=== PATIENT | male | born 1950 | race Caucasian/White ===

== ENCOUNTER 2016-10-31 22:47 | Emergency (ER) | payer OTHER, MEDICAID ==
[2016-11-01] MEDS ORDERED: OXYMETAZOLINE NASAL SPRAY (AFRIN) As Ordered ONE (00:01)
--- NOTE | 2016-11-01 00:28 | EDDOCDS ---
Nurse's Notes [facility] Name: Melo Montana Age: 66 yrs Sex: Male : 1950 Arrival Date: 10/31/2016 Time: 22:47 Bed I8 / 16 Private MD: Unknown, Family Dr Diagnosis: Epistaxis-resolved;Essential (primary) hypertension Presentation: 10/31 22:50 Presenting complaint: Patient states: nose bleed this morning. stopped after 20 mts of rs3 pressure/rest. started back 2 hours ago. unable to control bleeding. Adult Sepsis Screening: The patient does not have new or worsening altered mentation. Patient's respiratory rate is less than 22. Systolic blood pressure is greater than 100. Patient has a qSOFA score of 0- Negative Sepsis Screen. Suicide/Homicide risk assessment- the patient denies having any suicidal and/or homicidal ideations and does not present with any other emotional, behavioral or mental health complaints. Status: Patient is not a cloud services architect or dependent. Transition of care: patient was not received from another setting of care. 22:50 Acuity: SHANNON Level 3 rs3 22:50 Method Of Arrival: Walkin/Carried/Asstd rs3 Triage Assessment: 22:57 General: Appears in no apparent distress. Pain: Denies pain. rs3 Historical: - Allergies: no known allergies; - Home Meds: 1. amlodipine 10 mg Oral tab once daily 2. metoprolol tartrate 100 mg Oral tab 2 times per day 3. hydrochlorothiazide 25 mg Oral tab 1 tab once daily 4. lisinopril 5 mg Oral tab once daily 5. aspirin 81 mg Oral cpDR 6. sildenafil 25 mg oral tab 1 tab as needed 7. metformin 500 mg Oral tab 1 tab 2 times per day - PMHx: Hypertension; Diabetes - NIDDM: controlled; - PSHx: Cholecystectomy; - Social history: Smoking status: Patient states was never smoker of tobacco. No barriers to communication noted, The patient speaks fluent Kinyarwanda. - Family history: Not pertinent. - : The pt / caregiver states he / she is not on anticoagulants. Home medication list is obtained from the patient. - Exposure Risk Screening:: None identified. Screenin/29 00:25 Screening information is obtained from the patient. Fall risk: No risks identified. slm Assistance ADL's: requires no assistance with activities of daily living. Abuse/DV Screen: The patient / caregiver reports he/she is: not in a situation that causes fear, pain or injury. Nutritional screening: No deficits noted. Advance Directives: Currently, there is no health care proxy. There is no active DNR order. There is no living will. There is no Power of Billing Adjudicator. Advance directive information has not previously been placed in an [facility] medical record. home support is adequate. Assessment: 00:25 Reassessment: Patient appears in no apparent distress at this time. no active bleeding slm from nares at this time . Vital Signs: 10/31 22:49 BP 174 / 104; Pulse 63; Resp 18 S; Temp 97.1(T); Pulse Ox 99% on R/A; Weight 63.05 kg dd6 (R); Height 5 ft. 6 in. (167.64 cm) (R); 23:55 BP 166 / 81; Pulse 89; Resp 18; Temp 97.3; Pulse Ox 97% ; ajs 22:49 Body Mass Index 22.43 (63.05 kg, 167.64 cm) dd6 Vitals: 22:49 Log In Time: October 31, 2016 at 22:47. dd6 ED Course: 22:48 Patient visited by Mina Almeida PCA. dd6 22:48 Unknown, Family Dr is Private Physician. dd6 22:48 Patient moved to Waiting dd6 22:50 Patient moved to Pre RCE dd6 22:53 Triage Initiated rs3 22:59 Patient moved to I8 / 16 kmg1 23:34 Silver Brown DO is Attending Physician. mm11 23:34 Patient visited by Silver Brown DO. mm11 23:45 Patient visited by Silver Brown DO. mm11 23:56 Patient visited by Joyce Farah. ajs 11/01 00:26 The patient / caregiver is instructed regarding the plan of care and ED course. Patient slm has correct armband on for positive identification. Bed in low position. Call light in reach. Side rails up X 1. 00:26 No IV's were initiated during this patient's visit. No procedures done that require slm assistance. Administered Medications: 00:07 Drug: Oxymetazoline 1 sprays [oxymetazoline 0.05 % nasal spray (1 sprays)] Route: anamaria Intranasal; Site: both nares; Order Results: There are currently no results for this order. Outcome: 00:21 Discharge ordered by Provider. mm11 00:26 Discharge Assessment: Patient awake, alert and oriented x 3. No cognitive and/or slm functional deficits noted. Patient verbalized understanding of disposition instructions. patient administered narcotics - no. The following High Risk Discharge criteria are identified: None. Discharged to home ambulatory. Condition: good. Discharge instructions given to patient, Instructed on discharge instructions, follow up and referral plans. Demonstrated understanding of instructions, Pt was receptive of discharge instructions/ teaching. No special radiology studies were completed. Property :Personal belongings accompany Pt. 00:27 Patient left the ED. slm Signatures: Kera Nguyen, RN RN kmg1 Silver Brown, DO DO mm11 Mina Almeida, STEEL DIE ENGRAVER STEEL DIE ENGRAVER dd6 Jacey Albright RN RN rs3 Joyce Farah Joshua, RN RN jmb McIntyre, Stephanie, LPN LPN slm DULCE MARIA
--- NOTE | 2016-11-01 00:28 | EDDOCDS ---
Physician Documentation [facility] Name: Melo Montana Age: 66 yrs Sex: Male : 1950 Arrival Date: 10/31/2016 Time: 22:47 Bed I8 Private MD: Unknown, Family Dr Disposition: 11/01/16 00:21 Discharged to Home/Self Care. Impression: Epistaxis - resolved, Essential (primary) hypertension. - Condition is Stable. - Discharge Instructions: Nosebleed, Hypertension, Hypertension, [id number], Nosebleed, Gvsf-aw-[id number]. - Medication Reconciliation, Local Pharmacy Hours form. - Follow up: Private Physician; When: Call to arrange an appointment; Reason: Continuance of care. - Problem is an acute exacerbation. - Symptoms have improved. Historical: - Allergies: no known allergies; - Home Meds: 1. amlodipine 10 mg Oral tab once daily 2. metoprolol tartrate 100 mg Oral tab 2 times per day 3. hydrochlorothiazide 25 mg Oral tab 1 tab once daily 4. lisinopril 5 mg Oral tab once daily 5. aspirin 81 mg Oral cpDR 6. sildenafil 25 mg oral tab 1 tab as needed 7. metformin 500 mg Oral tab 1 tab 2 times per day - PMHx: Hypertension; Diabetes - NIDDM: controlled; - PSHx: Cholecystectomy; - Social history: Smoking status: Patient states was never smoker of tobacco. No barriers to communication noted, The patient speaks fluent Northern Irish. - Family history: Not pertinent. - : The pt / caregiver states he / she is not on anticoagulants. Home medication list is obtained from the patient. - Exposure Risk Screening:: None identified. Vital Signs: 10/31 22:49 BP 174 / 104; Pulse 63; Resp 18 S; Temp 97.1(T); Pulse Ox 99% on R/A; Weight 63.05 kg / dd6 139 lbs (R); Height 5 ft. 6 in. (167.64 cm) (R); 23:55 BP 166 / 81; Pulse 89; Resp 18; Temp 97.3; Pulse Ox 97% ; ajs 22:49 Body Mass Index 22.43 (63.05 kg, 167.64 cm) dd6 MDM: 23:46 Oxymetazoline [place] 0.05 % 1 sprays Intranasal in both nares once ordered. mm11 23:46 Recheck B/P ordered. mm11 Administered Medications: 11/01 00:07 Drug: Oxymetazoline 1 sprays [oxymetazoline 0.05 % nasal spray (1 sprays)] Route: jmb Intranasal; Site: both nares; Signatures: Silver Brown DO DO mm11 Jacey Albright RN RN rs3 Maryam Sahu LPN LPN Kwabena Eduardo RN GLENNYD
--- NOTE | 2016-11-03 01:28 | EDDOCDS ---
Nurse's Notes [facility] Name: Melo Montana Age: 66 yrs Sex: Male : 1950 Arrival Date: 10/31/2016 Time: 22:47 Bed I8 / 16 Private MD: Unknown, Family Dr Diagnosis: Epistaxis-resolved;Essential (primary) hypertension Presentation: 10/31 22:50 Presenting complaint: Patient states: nose bleed this morning. stopped after 20 mts of rs3 pressure/rest. started back 2 hours ago. unable to control bleeding. Adult Sepsis Screening: The patient does not have new or worsening altered mentation. Patient's respiratory rate is less than 22. Systolic blood pressure is greater than 100. Patient has a qSOFA score of 0- Negative Sepsis Screen. Suicide/Homicide risk assessment- the patient denies having any suicidal and/or homicidal ideations and does not present with any other emotional, behavioral or mental health complaints. Status: Patient is not a hotel services sales representative or dependent. Transition of care: patient was not received from another setting of care. 22:50 Acuity: SHANNON Level 3 rs3 22:50 Method Of Arrival: Walkin/Carried/Asstd rs3 Triage Assessment: 22:57 General: Appears in no apparent distress. Pain: Denies pain. rs3 Historical: - Allergies: no known allergies; - Home Meds: 1. amlodipine 10 mg Oral tab once daily 2. metoprolol tartrate 100 mg Oral tab 2 times per day 3. hydrochlorothiazide 25 mg Oral tab 1 tab once daily 4. lisinopril 5 mg Oral tab once daily 5. aspirin 81 mg Oral cpDR 6. sildenafil 25 mg oral tab 1 tab as needed 7. metformin 500 mg Oral tab 1 tab 2 times per day - PMHx: Hypertension; Diabetes - NIDDM: controlled; - PSHx: Cholecystectomy; - Social history: Smoking status: Patient states was never smoker of tobacco. No barriers to communication noted, The patient speaks fluent Occitan. - Family history: Not pertinent. - : The pt / caregiver states he / she is not on anticoagulants. Home medication list is obtained from the patient. - Exposure Risk Screening:: None identified. Screenin/29 00:25 Screening information is obtained from the patient. Fall risk: No risks identified. slm Assistance ADL's: requires no assistance with activities of daily living. Abuse/DV Screen: The patient / caregiver reports he/she is: not in a situation that causes fear, pain or injury. Nutritional screening: No deficits noted. Advance Directives: Currently, there is no health care proxy. There is no active DNR order. There is no living will. There is no Power of Slag Mixer. Advance directive information has not previously been placed in an [facility] medical record. home support is adequate. Assessment: 00:25 Reassessment: Patient appears in no apparent distress at this time. no active bleeding slm from nares at this time . Vital Signs: 10/31 22:49 BP 174 / 104; Pulse 63; Resp 18 S; Temp 97.1(T); Pulse Ox 99% on R/A; Weight 63.05 kg dd6 (R); Height 5 ft. 6 in. (167.64 cm) (R); 23:55 BP 166 / 81; Pulse 89; Resp 18; Temp 97.3; Pulse Ox 97% ; ajs 22:49 Body Mass Index 22.43 (63.05 kg, 167.64 cm) dd6 Vitals: 22:49 Log In Time: October 31, 2016 at 22:47. dd6 ED Course: 22:48 Patient visited by Mina Almeida PCA. dd6 22:48 Unknown, Family Dr is Private Physician. dd6 22:48 Patient moved to Waiting dd6 22:50 Patient moved to Pre RCE dd6 22:53 Triage Initiated rs3 22:59 Patient moved to I8 / 16 km 23:34 Silver Brown DO is Attending Physician. mm11 23:34 Patient visited by Silver Brown DO. mm11 23:45 Patient visited by Silver Brown DO. mm11 23:56 Patient visited by Joyce Farah. ajs 11/01 00:26 The patient / caregiver is instructed regarding the plan of care and ED course. Patient slm has correct armband on for positive identification. Bed in low position. Call light in reach. Side rails up X 1. 00:26 No IV's were initiated during this patient's visit. No procedures done that require slm assistance. 00:33 Patient name changed from Melo\S\\S\Viobed\S\ to Melo\S\ \S\Vielhauer. EDMS 00:38 [facility] Payment Agreement was scanned into [employer] and attached to record. ks16 22:24 T-Sheet-- Draft Copy was scanned into [employer] and attached to record. klr Administered Medications: 00:07 Drug: Oxymetazoline 1 sprays [oxymetazoline 0.05 % nasal spray (1 sprays)] Route: jmb Intranasal; Site: both nares; Order Results: There are currently no results for this order. Outcome: 00:21 Discharge ordered by Provider. mm11 00:26 Discharge Assessment: Patient awake, alert and oriented x 3. No cognitive and/or slm functional deficits noted. Patient verbalized understanding of disposition instructions. patient administered narcotics - no. The following High Risk Discharge criteria are identified: None. Discharged to home ambulatory. Condition: good. Discharge instructions given to patient, Instructed on discharge instructions, follow up and referral plans. Demonstrated understanding of instructions, Pt was receptive of discharge instructions/ teaching. No special radiology studies were completed. Property :Personal belongings accompany Pt. 00:27 Patient left the ED. slm Signatures: Dispatcher [employer] EDMS Kera Nguyen, RN RN kmg1 Silver Brown, DO DO mm11 Mina Almeida, DIRECTOR SUPPLIER QUALITY DIRECTOR SUPPLIER QUALITY dd6 Jacey Albright,RN RN rs3 Joyce Farah JoshuaRN RN Maryam Hunt LPN LPN slm Daya Tao, Reg Reg ks16 Ana María Kauffman klr Chart Complete MTDD
--- NOTE | 2016-11-03 01:28 | EDDOCDS ---
Physician Documentation [facility] Name: Melo Montana Age: 66 yrs Sex: Male : 1950 Arrival Date: 10/31/2016 Time: 22:47 Bed I8 Private MD: Unknown, Family Dr Disposition: 11/01/16 00:21 Discharged to Home/Self Care. Impression: Epistaxis - resolved, Essential (primary) hypertension. - Condition is Stable. - Discharge Instructions: Nosebleed, Hypertension, Hypertension, Vvqt-[id number], Nosebleed, Gwth-cg-Yley. - Medication Reconciliation, Local Pharmacy Hours form. - Follow up: Private Physician; When: Call to arrange an appointment; Reason: Continuance of care. - Problem is an acute exacerbation. - Symptoms have improved. Historical: - Allergies: no known allergies; - Home Meds: 1. amlodipine 10 mg Oral tab once daily 2. metoprolol tartrate 100 mg Oral tab 2 times per day 3. hydrochlorothiazide 25 mg Oral tab 1 tab once daily 4. lisinopril 5 mg Oral tab once daily 5. aspirin 81 mg Oral cpDR 6. sildenafil 25 mg oral tab 1 tab as needed 7. metformin 500 mg Oral tab 1 tab 2 times per day - PMHx: Hypertension; Diabetes - NIDDM: controlled; - PSHx: Cholecystectomy; - Social history: Smoking status: Patient states was never smoker of tobacco. No barriers to communication noted, The patient speaks fluent Central African. - Family history: Not pertinent. - : The pt / caregiver states he / she is not on anticoagulants. Home medication list is obtained from the patient. - Exposure Risk Screening:: None identified. Vital Signs: 10/31 22:49 BP 174 / 104; Pulse 63; Resp 18 S; Temp 97.1(T); Pulse Ox 99% on R/A; Weight 63.05 kg / dd6 139 lbs (R); Height 5 ft. 6 in. (167.64 cm) (R); 23:55 BP 166 / 81; Pulse 89; Resp 18; Temp 97.3; Pulse Ox 97% ; ajs 22:49 Body Mass Index 22.43 (63.05 kg, 167.64 cm) dd6 MDM: 23:46 Oxymetazoline [place] 0.05 % 1 sprays Intranasal in both nares once ordered. mm11 23:46 Recheck B/P ordered. mm11 11/01 00:36 Financial registration complete. ks16 00:37 Undo -Financial registration. ks16 00:37 Financial registration complete. ks16 00:38 [facility] Payment Agreement was scanned into [employer] and attached to record. ks16 22:24 T-Sheet-- Draft Copy was scanned into [employer] and attached to record. klr Administered Medications: 00:07 Drug: Oxymetazoline 1 sprays [oxymetazoline 0.05 % nasal spray (1 sprays)] Route: jmb Intranasal; Site: both nares; Signatures: Silver Brown, DO GONZALEZ mm11 Jacey Albright RN RN rs3 Maryam Sahu LPN LPN slDaya Diana, Reg Reg ks16 Ana María Kauffman Joshua RN jmb The chart was reviewed and I authenticate all verbal orders and agree with the evaluation and treatment provided.Attachments: 00:38 [facility] Payment Agreement ks16 22:24 T-Sheet-- Draft Copy klr Chart Complete MTDD
--- NOTE | 2016-11-03 01:28 | EDDOCDS ---
Physician Documentation [facility] Name: Melo Montana Age: 66 yrs Sex: Male : 1950 Arrival Date: 10/31/2016 Time: 22:47 Bed I8 Private MD: Unknown, Family Dr Disposition: 11/01/16 00:21 Discharged to Home/Self Care. Impression: Epistaxis - resolved, Essential (primary) hypertension. - Condition is Stable. - Discharge Instructions: Nosebleed, Hypertension, Hypertension, [id number]-ah-[id number], Nosebleed, [id number]-qv-Oyex. - Medication Reconciliation, Local Pharmacy Hours form. - Follow up: Private Physician; When: Call to arrange an appointment; Reason: Continuance of care. - Problem is an acute exacerbation. - Symptoms have improved. Historical: - Allergies: no known allergies; - Home Meds: 1. amlodipine 10 mg Oral tab once daily 2. metoprolol tartrate 100 mg Oral tab 2 times per day 3. hydrochlorothiazide 25 mg Oral tab 1 tab once daily 4. lisinopril 5 mg Oral tab once daily 5. aspirin 81 mg Oral cpDR 6. sildenafil 25 mg oral tab 1 tab as needed 7. metformin 500 mg Oral tab 1 tab 2 times per day - PMHx: Hypertension; Diabetes - NIDDM: controlled; - PSHx: Cholecystectomy; - Social history: Smoking status: Patient states was never smoker of tobacco. No barriers to communication noted, The patient speaks fluent Cape Verdean. - Family history: Not pertinent. - : The pt / caregiver states he / she is not on anticoagulants. Home medication list is obtained from the patient. - Exposure Risk Screening:: None identified. Vital Signs: 10/31 22:49 BP 174 / 104; Pulse 63; Resp 18 S; Temp 97.1(T); Pulse Ox 99% on R/A; Weight 63.05 kg / dd6 139 lbs (R); Height 5 ft. 6 in. (167.64 cm) (R); 23:55 BP 166 / 81; Pulse 89; Resp 18; Temp 97.3; Pulse Ox 97% ; ajs 22:49 Body Mass Index 22.43 (63.05 kg, 167.64 cm) dd6 MDM: 23:46 Oxymetazoline [place] 0.05 % 1 sprays Intranasal in both nares once ordered. mm11 23:46 Recheck B/P ordered. mm11 11/01 00:36 Financial registration complete. ks16 00:37 Undo -Financial registration. ks16 00:37 Financial registration complete. ks16 00:38 [facility] Payment Agreement was scanned into [employer] and attached to record. ks16 22:24 T-Sheet-- Draft Copy was scanned into [employer] and attached to record. klr Administered Medications: 00:07 Drug: Oxymetazoline 1 sprays [oxymetazoline 0.05 % nasal spray (1 sprays)] Route: jmb Intranasal; Site: both nares; Signatures: Silver Brown, DO GONZALEZ mm11 Jacey Albright RN RN rs3 Maryam Sahu LPN LPN slDaya Diana, Reg Reg ks16 Ana María Kauffman Joshua RN jmb The chart was reviewed and I authenticate all verbal orders and agree with the evaluation and treatment provided.Attachments: 00:38 [facility] Payment Agreement ks16 22:24 T-Sheet-- Draft Copy klr Chart Complete MTDD
== END 2016-11-01 00:27 | disposition home or self-care (01) ==
LOC: M ED 22:47
DX: R04.0 Epistaxis (principal); I10 Essential (primary) hypertension; E11.9 Type 2 diabetes mellitus without complications; Z90.49 Acquired absence of other specified parts of digestive tract; Z79.82 Long term (current) use of aspirin; Z79.899 Other long term (current) drug therapy